=== PATIENT | female | born 1985 | race Caucasian/White ===

== ENCOUNTER 2025-07-15 16:37 | Emergency (ER) | payer BC ==
[~2025-07-15] VITALS: Ht 162.6 cm; Wt 54.4 kg
[2025-07-15] MEDS ORDERED: dexaMETHasone SOD PHOSPHATE 4 MG/ML VIAL ONE (17:29)
[2025-07-15] MEDS ORDERED: KETOROLAC TROMETHAMINE 15 MG/ML VIAL ONE (17:29)
[2025-07-15] MEDS ORDERED: CYCLOBENZAPRINE 10 MG TABLET ONE (17:30)
[2025-07-15] MEDS ORDERED: ONDANSETRON HCL/PF 4 MG/2 ML VIAL ONE (17:33)
[2025-07-15] MEDS: IV NS 0.9% 1,000 ML BAG IV ONE (17:55)
[2025-07-15] MEDS: dexaMETHasone SOD PHOSPHATE 4 MG/ML VIAL IV ONE (17:55)
[2025-07-15] MEDS: CYCLOBENZAPRINE 10 MG TABLET PO ONE (17:56)
[2025-07-15] MEDS: ONDANSETRON HCL/PF 4 MG/2 ML VIAL IV ONE (17:56)
[2025-07-15] MEDS: KETOROLAC TROMETHAMINE 15 MG/ML VIAL IV ONE (17:56)
[2025-07-15] MEDS ORDERED: MORPHINE SULFATE INJ 4 MG/ML DISP.SYRIN ONE (18:38)
[2025-07-15] MEDS ORDERED: LIDO30AD10 TP (18:40)
[2025-07-15] MEDS ORDERED: CYCL10TA9 PO (18:40)
[2025-07-15] MEDS ORDERED: IBUP-1490 PO (18:40)
[2025-07-15] MEDS: MORPHINE SULFATE INJ 2 MG/ML DISP.SYRIN IV ONE (18:41)
[2025-07-15] MEDS ORDERED: ONDA4TAB5 PO (19:14)
[2025-07-15 19:47] VITALS: BP 111/60; TEMP 97.8; O2SAT 97
== END 2025-07-15 19:50 | disposition home or self-care (01) ==
LOC: ER 16:53
DX: M54.50 Low back pain, unspecified (principal); M25.551 Pain in right hip; R20.2 Paresthesia of skin; R55 Syncope and collapse; Z88.1 Allergy status to other antibiotic agents
CPT/HCPCS: 99284; 96374; 96375; 96361; 93005; J1885; J1100; J2270; J2405; J7030